=== PATIENT | female | born 1940 | race Caucasian/White ===

== ENCOUNTER 2019-02-09 07:35 | Day surgery (SDC) | payer MEDICARE, BC ==
[2019-02-09] MEDS ORDERED: Lactated Ringers 1,000 ML IV SCH (08:00)
[2019-02-09] MEDS ORDERED: Propofol 200 MG/20 ML SDV ONE (08:20)
[2019-02-09] MEDS ORDERED: fentaNYL 100 MCG/2 ML SDV ONE (08:20)
[2019-02-09] MEDS ORDERED: Midazolam 1 MG/ML 2 ML SDV ONE (08:20)
[2019-02-09] MEDS ORDERED: Sodium Phosphate,Monobasic/Sodium Phosphate,Dibasic Enema 133 ML Bottle RECTAL ONE (08:26)
[2019-02-09 10:38] VITALS: BP 142/72; PULSE 62
--- NOTE | 2019-02-09 12:48 | OR ---
DATE OF PROCEDURE: 02/09/2019 SURGEON: Lyle Henry MD PREOPERATIVE DIAGNOSIS: Blood in stool. POSTOPERATIVE DIAGNOSIS: Blood in stool, etiology unknown, possible hemorrhoid. PROCEDURE: Colonoscopy to the cecum. ANESTHESIA: IV anesthesia with monitored anesthesia care. INDICATION: This 78-year-old white female is referred for a colonoscopy because of blood in her stool. She says her last colonoscopic exam was done about 3 years ago. I counseled her for the procedure, including risks and alternatives, and she gave her informed consent to proceed. DESCRIPTION OF PROCEDURE: The patient was placed in the left lateral decubitus position. IV anesthesia was administered by the Anesthesia Service. Time-out was held. A rectal exam was performed, which was unremarkable. The flexible video Olympus colonoscope was introduced through her anus, up her rectum, out her colon all the way to the cecum. Once the cecum was reached, the scope was slowly withdrawn, examining the mucosa throughout. The prep was good. No mucosal abnormalities were noted. The scope was retroflexed in the rectum where the distal rectum appeared unremarkable. Scope was straightened and removed. It did appear she had an external hemorrhoid right at the dentate line, which possibly could have bled. The scope was removed. She tolerated the procedure well. Lyle Henry MD /[id number]
== END 2019-02-09 10:50 | disposition home or self-care (01) ==
LOC: JP.SDS 07:35
PROVIDERS: ATTEND Surgery
DX: K92.1 Melena (principal); K64.4 Residual hemorrhoidal skin tags; K21.9 Gastro-esophageal reflux disease without esophagitis; I12.9 Hypertensive chronic kidney disease with stage 1 through stage 4 chronic kidney disease, or unspecified chronic kidney disease; N18.3 Chronic kidney disease, stage 3 (moderate); E78.5 Hyperlipidemia, unspecified; Z88.2 Allergy status to sulfonamides; Z88.8 Allergy status to other drugs, medicaments and biological substances; Z91.041 Radiographic dye allergy status; Z86.010 Personal history of colon polyps
CPT/HCPCS: 45378; A9270; J2250; J2704; J3010; J7120

== ENCOUNTER 2023-03-27 08:17 | Day surgery (SDC) | payer MEDICARE, BC ==
[2023-03-27] MEDS ORDERED: Lactated Ringers 1,000 ML IV SCH (09:00)
[2023-03-27] MEDS ORDERED: fentaNYL 50 MCG/ML SDV ONE (10:05)
[2023-03-27] MEDS ORDERED: Propofol 200 MG/20 ML SDV ONE (10:05)
[2023-03-27 12:39] VITALS: PULSE 64
[2023-03-27 12:42] VITALS: BP 141/53
== END 2023-03-27 12:54 | disposition home or self-care (01) ==
LOC: JP.SDS 08:17
PROVIDERS: ATTEND Student in an Organized Health Care Education/Training Program
DX: K62.1 Rectal polyp (principal); I10 Essential (primary) hypertension; I49.1 Atrial premature depolarization; K21.9 Gastro-esophageal reflux disease without esophagitis; F41.9 Anxiety disorder, unspecified; I12.9 Hypertensive chronic kidney disease with stage 1 through stage 4 chronic kidney disease, or unspecified chronic kidney disease; N18.9 Chronic kidney disease, unspecified; E04.1 Nontoxic single thyroid nodule; Z91.041 Radiographic dye allergy status; Z88.2 Allergy status to sulfonamides; Z88.8 Allergy status to other drugs, medicaments and biological substances; Z80.0 Family history of malignant neoplasm of digestive organs
CPT/HCPCS: J2704; J3010; J7120

== ENCOUNTER 2023-05-02 07:45 | Day surgery (SDC) | payer MEDICARE, BC ==
[2023-05-02] MEDS ORDERED: Propofol 200 MG/20 ML SDV ONE (07:57)
[2023-05-02] MEDS ORDERED: fentaNYL 50 MCG/ML SDV ONE (07:57)
[2023-05-02] MEDS ORDERED: Sodium Chloride 0.9% 1,000 ML IV SCH (08:30)
[2023-05-02 09:46] VITALS: BP 131/73; PULSE 72
== END 2023-05-02 09:52 | disposition home or self-care (01) ==
LOC: JP.SDS 07:45
PROVIDERS: ATTEND Surgery
DX: Z12.11 Encounter for screening for malignant neoplasm of colon (principal); K57.30 Diverticulosis of large intestine without perforation or abscess without bleeding; I10 Essential (primary) hypertension; K21.9 Gastro-esophageal reflux disease without esophagitis
CPT/HCPCS: G0121; J2704; J3010; J7030